=== PATIENT | male | born 1970 | race Caucasian/White ===

== ENCOUNTER 2017-08-14 13:05 | Emergency (ER) | payer OTHER ==
[~2017-08-14] VITALS: Ht 177.8 cm; Wt 88.5 kg
[2017-08-14] MEDS ORDERED: PRINIVIL20 MG PO (13:29)
[2017-08-14] MEDS ORDERED: FLEXERIL PO (13:29)
[2017-08-14] MEDS ORDERED: HYDROCHLOROTH12.5 M1 PO (13:30)
[2017-08-14] MEDS ORDERED: BUSPIRONE HCL10 MG PO (13:30)
[2017-08-14] MEDS ORDERED: OXYCODONE HCL 55 MG PO (14:04)
== END 2017-08-14 14:09 | disposition home or self-care (01) ==
LOC: ER 13:05
DX: R10.9 Unspecified abdominal pain (principal); F17.210 Nicotine dependence, cigarettes, uncomplicated; I10 Essential (primary) hypertension